=== PATIENT | female | born 1995 | race Caucasian/White ===

== ENCOUNTER 2025-02-12 07:34 | Inpatient (IN) ==
[2025-02-12] MEDS ORDERED: LIDOCAINE 1% LOCAL 20 ML VIAL INFIL PRN (07:48)
[2025-02-12 08:23] LABS: Hematocrit (blood only) 36.0 % (37.0-47.0); Hemoglobin 12.0 g/dl (12.0-16.0); Mean Corpuscular Hemoglobin 26.2 pg (25.0-34.0); Mean Corpuscular Volume 78.6 fL (80.0-100.0); Platelet Count 260 K/uL (130-400); RDW Standard Deviation 39.9 fL (36.4-46.3); Red Blood Count 4.58 M/uL (4.20-5.40); White Blood Count 12.36 K/ul (4.8-10.8)
[2025-02-12] MEDS: PENICILLIN GK 6 MU in DEXTROSE 5% 250 ML IV STA (08:31)
[2025-02-12] MEDS: LACTATED RINGER'S 1,000 ML IV PRN (08:32)
[2025-02-12] MEDS: OXYTOCIN 30 UNITS/NSS 30 UNITS/500 ML BAG IV PRN ×2 (09:28→22:51)
--- NOTE | 2025-02-12 10:31 | Labor Progress Brief Note ---
Date of Service February 12, 2025 Subjective Patient tolerating contractions Assessment & Plan Admission and Anticipated Discharge Date Admission Date: February 12, 2025 Physical Exam Genitourinary: Cervix 50/-2 AROM clear fluid FHT Cat 1 [place] poorly traced Pit @ 3 Results & Data Vital Signs (Past 12 Hours) Vital Signs Temp Pulse Resp BP 02/12/25 10:09 70 106/54 L 02/12/25 08:49 98.1 F 107 H 16 138/88 02/12/25 07:55 107 H 138/88 Coding Level of Care Code None
[2025-02-12 10:49] LABS: Alanine Aminotransferase 9.0 U/L (7-52); Albumin Globulin Ratio 1.1 (0.9-2); Albumin Level 3.4 gm/dl (3.4-5.0); Alkaline Phosphatase 130.0 U/L (34-104); Anion Gap 10.0 (3-11); Bilirubin,Total 0.3 mg/dl (0.2-1.0); Blood Urea Nitrogen 12.0 mg/dl (6-23); Calcium 9.4 mg/dl (8.6-10.3); Carbon Dioxide 20.0 mmol/L (21-32); Chloride 106.0 mmol/L (98-107); Creatinine Clr Calc Pharmacy 190.0 ml/min; Globulin 3.2 gm/dl (2.5-4.0); Glucose 151.0 mg/dl (70-99(Fasting)); Potassium 3.7 mmol/L (3.5-5.1); Sodium 136.0 mmol/L (136-145); Total Protein 6.6 gm/dl (6.0-8.3)
[2025-02-12 12:27] LABS: Protein Creatinine Ratio Urine 0.1 (0-0.2); Total Protein Urine Random 17.9 mg/dl (0-11.9)
[2025-02-12] MEDS: PENICILLIN GK 3 MU in DEXTROSE 5% 100 ML IV PRN (12:43)
[2025-02-12] MEDS ORDERED: LIDOCAINE 2%/EPINEPHRINE 1:200,000 20 ML PF EPI STA (17:27)
[2025-02-12] MEDS ORDERED: LIDOCAINE 2% MPF LOCAL 5 ML VIAL EPI PRN (17:27)
[2025-02-12] MEDS ORDERED: NALBUPHINE HCL INJ 10 MG/ML AMP IV PRN (17:27)
[2025-02-12] MEDS ORDERED: SODIUM CHLORIDE 0.9% PF INJ 10 ML VIAL EPI PRN (17:27)
[2025-02-12] MEDS ORDERED: NALOXONE HCL 0.4 MG/1 ML VIAL/CARP IV PRN (17:27)
[2025-02-12] MEDS ORDERED: SODIUM CHLORIDE 0.9% PF INJ 10 ML VIAL EPI STA (17:27)
[2025-02-12] MEDS ORDERED: diphenhydrAMINE 50 MG/ML VIAL IV PRN (17:27)
[2025-02-12] MEDS ORDERED: BUPIVACAINE 0.25% PF 30 ML VIAL EPI STA (17:27)
[2025-02-12] MEDS ORDERED: ROPIVACAINE 0.5% PF 5 MG/ML 20 ML VIAL EPI PRN (17:27)
[2025-02-12] MEDS ORDERED: NALOXONE HCL 1 MG in SODIUM CHLORIDE 0.9% 1,000 ML IV PRN (17:27)
--- NOTE | 2025-02-12 17:29 | Anesthesiology Consultation ---
Date of Service February 12, 2025 Assessment & Plan Chart Review Chart Review: Patient NOT seen in Pre Admission Testing and Acceptable Risk for Labor Epidural Consults Requested none ASA ASA3 Proposed Anesthesia Anesthesia Type: Labor Epidural Risk / Benefits Reviewed With: PT / POA / Parent / Guardian, Accepts Plan and Informed Consent Obtained History Height/Weight Height: 5 ft 10 in Weight: 143.789 kg Allergies Allergy/AdvReac Type Severity Reaction Status Date / Time ketorolac [From Toradol] AdvReac Intermediate Hot flash, Verified 02/11/25 08:52 headache Onions Allergy Severe Anaphylaxis Uncoded 02/11/25 08:52 Medications Home Medications Medication Instructions Recorded Confirmed Last Taken fluoxetine 20 mg capsule 20 mg PO DAILY 06/10/24 02/12/25 02/12/25 Naltrexone Tablets 2.5 mg PO DAILY 08/22/24 02/12/25 02/12/25 vit no.95-ferrous 1 tab PO DAILY 08/22/24 02/12/25 02/12/25 fumarate 28 mg-folic acid 800 mcg tablet () pyridoxine (vitamin B6) 100 mg 100 mg PO BID 08/22/24 02/11/25 02/11/25 tablet (Vitamin B-6) levothyroxine 100 mcg tablet 200 mcg PO DAILY 11/26/24 02/12/25 02/12/25 ferrous sulfate 325 mg (65 mg 325 mg PO Q OTHER DAY 02/11/25 02/12/25 1 Day Ago iron) tablet ~02/11/25 Active Medications Generic Name Dose Route Start Last Admin Trade Name Freq PRN Reason Stop Dose Admin Penicillin G Potassium 3 mu/ 106 mls @ 100 mls/hr 02/12/25 10:49 02/12/25 17:25 Dextrose IV 02/22/25 10:48 100 mls/hr Q4H PRN Administration GBS(+) Until Delivery Lactated Ringer's 1,000 mls @ 125 mls/hr 02/12/25 07:48 02/12/25 16:17 Lr IV 02/14/25 07:47 125 mls/hr .Q8H PRN Administration L&D Protocol Protocol Oxytocin 30 units in 500 mls @ 20 mls/hr 02/12/25 07:49 02/12/25 16:10 Pitocin 30 Units/Nss IV 02/14/25 07:48 1.2 units/hr .Q24H PRN 20 mls/hr Labor Induction/Augmentation Titration Protocol 1.2 UNITS/HR NPO Date Last Intake of Fluids: 02/12/25 Time Last Intake of Fluids: 17:00 Date Last Intake of Solids: 02/12/25 Time Last Intake of Solids: 07:00 Past Medical History Medical History Needle phobia Depression Weight disorder Vitamin D deficiency Prediabetes Plantar warts Infected incision (09/11/23) Impaired glucose tolerance (07/14/23) 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) Epistaxis (02/16/23) Anemia Anal fissure (03/21/24) Depression History of adverse childhood experiences Excessive sleepiness History of migraine History of anemia History of prediabetes Lumbar disc herniation History of stomach ulcers NSAID induced History of suicide attempt unknown Age 18 Plantar fasciitis Exercise / Class Metabolic Activity 1 > 8 Run/Swim/Ski/Tennis Past Family History Family History Father Schizophrenia Sister Schizophrenia Mother Bipolar disorder Myocardial infarction Grandmother (Maternal) Myocardial infarction Hypertension Lung cancer Grandfather (Maternal) Myocardial infarction Alcoholism Breast cancer Ovarian cancer Grandmother (Paternal) Alcoholism Grandfather (Paternal) Alcoholism Denies family history of Colorectal cancer Past Surgical History Surgical History History of ankle surgery due to dog bite Status post epidural steroid injection Past Anesthesia History No Hx of Anesthesia Complications and No Family Hx of Anesthesia Complications History of PONV No Hx of PONV and No Hx of Motion Sickness Social History Smoking Status: Never smoker Do You Dip or Chew Tobacco: No Hx Alcohol Use: No Hx Substance Use: No Review of Systems ROS Unobtainable: All systems reviewed & are unremarkable except as noted in HPI & below Physical Exam Vital Signs Last Vital Signs Temp 36.7 C 02/12/25 16:46 Pulse 93 H 02/12/25 15:17 Resp 18 02/12/25 16:46 BP 133/72 02/12/25 15:17 ENMT Mouth: no TMJ abnormality Thyromental Distance: > or= 3.5 Finger Breadths Mallampati Class: II Neck normal visual inspection and trachea midline; neck extension not limited Respiratory normal respiratory effort Auscultation: lungs clear to auscultation bilaterally Cardiovascular Rate/Rhythm: regular rate and regular rhythm Heart Sounds: no murmur Musculoskeletal Spine: normal cervical ROM Extremities: full ROM of extremities Neurologic moves all extremities Psychiatric Orientation: alert and oriented x 3 Testing Laboratory Results 02/12/25 08:05 02/12/25 08:14 Blood Type O Positive 02/12/25 08:12 Antibody Screen NEGATIVE 02/12/25 08:12
[2025-02-12] MEDS ORDERED: ONDANSETRON INJ 2 MG/ML 2 ML VIAL IV PRN (17:32)
[2025-02-12] MEDS: fentANYL 2 MCG/ML BUPIVacaine 0.125%-NSS 100ML BAG EPI PRN (17:45)
[2025-02-12] MEDS: BUPIVACAINE 0.25% PF 30 ML VIAL EPI PRN (18:04)
[2025-02-12] MEDS: LIDOCAINE 2%/EPINEPHRINE 1:200,000 20 ML PF ONE (18:05)
--- NOTE | 2025-02-12 18:42 | Labor Progress Brief Note ---
Date of Service February 12, 2025 Subjective Recent events: Patient poorly tolerant of ctx, removing toco monitor despite being advised of its utility in the induction process. Counseled about option to use external vs internal monitoring of contractions but that monitoring itself was required for safety during pitocin use. Patient was very painful and stating that she could not tolerate the monitor externally nor tolerate placement of an internal monitor d/t pain. Counseled regarding pain management. Addressed her fears w/r/t epidural. She did undergo epidural, and got relief, but unfortunately the first catheter pulled out with patient movement and tape sticking to the sheets. Replacement completed, and patient did achieve comfort. She was thereafter accepting of external toco monitor. Cervical check at that point / Pit @ 20 Plan: Continue pitocin, reassess at interval. Assessment & Plan Admission and Anticipated Discharge Date Admission Date: February 12, 2025 Results & Data Vital Signs (Past 12 Hours) Vital Signs Temp Pulse Resp BP Pulse Ox 02/12/25 18:35 98 H 98 02/12/25 18:33 101 H 116/58 L 02/12/25 18:30 99 02/12/25 18:30 106 H 02/12/25 18:30 115 H 113/58 L 02/12/25 18:27 106 H 116/59 L 02/12/25 18:25 101 H 98 02/12/25 18:24 98 H 119/60 02/12/25 18:21 100 H 117/58 L 02/12/25 18:20 105 H 97 02/12/25 18:18 103 H 118/54 L 02/12/25 18:15 98 02/12/25 18:15 114 H 02/12/25 18:15 107 H 117/61 02/12/25 18:12 115/55 L 02/12/25 18:10 106 H 98 02/12/25 18:09 94 02/12/25 18:09 113 H 02/12/25 18:09 114 H 117/56 L 02/12/25 18:06 113 H 120/57 L 02/12/25 18:05 115 H 97 02/12/25 18:03 125 H 117/58 L 02/12/25 18:00 98 02/12/25 18:00 127 H 02/12/25 18:00 142 H 123/62 02/12/25 17:57 133 H 126/59 L 02/12/25 17:55 117 H 98 02/12/25 17:54 114 H 141/63 H 02/12/25 17:51 106 H 147/67 H 02/12/25 17:50 108 H 98 02/12/25 17:48 111 H 163/74 H 02/12/25 17:45 108 H 167/100 H 98 02/12/25 17:42 116 H 168/80 H 02/12/25 17:40 116 H 99 02/12/25 16:46 18 02/12/25 16:46 98.1 F 18 02/12/25 15:17 93 H 133/72 02/12/25 15:16 87 169/81 H 02/12/25 14:30 18 02/12/25 14:30 97.7 F 18 02/12/25 12:23 81 130/71 02/12/25 12:16 92 H 89/51 L 02/12/25 11:53 18 02/12/25 11:53 97.9 F 18 02/12/25 11:10 85 129/76 02/12/25 10:55 79 128/77 02/12/25 10:40 86 134/61 02/12/25 10:36 75 139/81 02/12/25 10:09 70 106/54 L 02/12/25 08:49 98.1 F 107 H 16 138/88 02/12/25 07:55 107 H 138/88 Coding Level of Care Code None
[2025-02-12] MEDS: TRANEXAMIC ACID / 0.7% NACL 1,000 MG/100 ML BAG IV STA (22:40)
--- NOTE | 2025-02-12 23:13 | Delivery Summary ---
Vaginal Delivery Summary Date of Service February 12, 2025 Vaginal Delivery Summary DIAGNOSES: 1. Obrien intrauterine at 40w3d gestation. 2. Induction of Labor. 3. Group B Streptococcus Pos. 4. hemorrhage PROCEDURE: Spontaneous vaginal delivery. SURGEON: Manasa Ovalle MD. SOLUTION ANALYST: None. QUANTITATIVE BLOOD LOSS: 647 mL. COMPLICATIONS: None. PLACENTA: Spontaneous and intact with a 3-vessel cord. DISPOSITION: Stable to labor and delivery. DESCRIPTION: The patient pushed well and brought the head to in DOA position. The 's head was allowed to deliver with contraction force and no further active pushing, with the perineum protected during this time. There was no nuchal cord. The left shoulder was anterior. The shoulders and body delivered without any difficulty, and the infant was placed on the maternal abdomen. It was vigorous and moving all extremities, and making respiratory efforts. The cord was doubly clamped by the MD and then cut by the FOB. The placenta delivered spontaneously and was noted to be intact and with a 3VC. The cervix, vagina and perineum were examined and were found to be without defect requiring repair. Lochia was brisk immediately after delivery. Cytotec was given, bimanual massage removed clots from the uterus, lochia continued to be brisk and TXA was given, again bimanual massage was performed, and again lochia resumed at a brisk trickle. Jayleen device was placed without difficulty and the first ~24" of tubing filled with blood, but then further progress stopped and there was no further vaginal loss of blood. [facility] Vaginal Delivery Charge Vaginal Delivery Codes: 22860 global code for the antepartum, delivery, and post-
[2025-02-12] MEDS ORDERED: HYDROCORTISONE ACETATE 25 MG SUPP PR PRN (23:24)
[2025-02-12] MEDS ORDERED: OXYTOCIN 30 UNITS/NSS 30 UNITS/500 ML BAG IV PRN (23:24)
[2025-02-12] MEDS: SODIUM CHLORIDE 0.9% PF INJ 10 ML VIAL ONE (23:26)
[2025-02-12] MEDS: BUPIVACAINE 0.25% PF 30 ML VIAL ONE (23:26)
[2025-02-12] MEDS: fentANYL 2 MCG/ML BUPIVacaine 0.125%-NSS 100ML BAG ONE (23:26)
--- NOTE | 2025-02-13 01:40 | Anesthesia Procedure Note ---
Date of Service February 13, 2025 Anesthesia Post Epidural Note Vital Signs Vital Signs: Temp Pulse Resp BP Pulse Ox 37.0 C 111 H 18 119/60 98 02/12/25 21:20 02/13/25 01:33 02/12/25 21:20 02/13/25 01:33 02/12/25 22:25 Notes Mental Status: alert / awake / arousable and participated in evaluation Nausea / Vomiting: adequately controlled Pain: adequately controlled Airway Patency, RR, SpO2: stable & adequate BP & HR: stable & adequate Hydration State: stable & adequate Neuraxial Anesthesia: was administered and sensory block is resolving Anesthetic Complications: no major complications apparent Epidural: Removed without complications and With tip intact
[2025-02-13] MEDS: ONDANSETRON INJ 2 MG/ML 2 ML VIAL ONE (05:38)
[2025-02-13] MEDS: TRANEXAMIC ACID / 0.7% NACL 1000MG/100ML BAG IV ONE (05:38)
[2025-02-13] MEDS: DIPHTHER/TETAN/PERTUS Vaccine (Tdap, Adol/Adult) 0.5mL IM ONE (05:38)
[2025-02-13] MEDS: ACETAMINOPHEN 325 MG TAB PO PRN (06:51)
[2025-02-13] MEDS: BENZOCAINE 20% SPRY 85 APPLN/85 GM CAN EXT PRN (06:51)
[2025-02-13] MEDS: LEVOTHYROXINE SODIUM 200 MCG TABLET PO SCH (06:51)
[2025-02-13 06:56] LABS: Hematocrit (blood only) 26.9 % (37.0-47.0); Hemoglobin 8.9 g/dl (12.0-16.0); Mean Corpuscular Hemoglobin 26.4 pg (25.0-34.0); Mean Corpuscular Volume 79.8 fL (80.0-100.0); Platelet Count 212 K/uL (130-400); RDW Standard Deviation 41.1 fL (36.4-46.3); Red Blood Count 3.37 M/uL (4.20-5.40); White Blood Count 14.99 K/ul (4.8-10.8)
--- NOTE | 2025-02-13 07:32 | Labor Progress Brief Note ---
Date of Service February 13, 2025 Subjective Resting on R side. [place] for exam. Assessment & Plan Admission and Anticipated Discharge Date Admission Date: February 12, 2025 Physical Exam Genitourinary: Jayleen and cedillo removed without incident. Results & Data Vital Signs (Past 12 Hours) Vital Signs Temp Pulse Resp BP Pulse Ox 02/13/25 03:21 113 H 136/84 02/13/25 02:18 109 H 125/64 02/13/25 02:03 108 H 125/61 02/13/25 01:48 110 H 116/57 L 02/13/25 01:33 111 H 119/60 02/13/25 01:18 111 H 125/66 02/13/25 01:03 123 H 126/58 L 02/13/25 00:48 113 H 112/55 L 02/13/25 00:33 112 H 112/57 L 02/13/25 00:18 109 H 107/59 L 02/13/25 00:03 113 H 107/58 L 02/12/25 23:48 116 H 134/68 02/12/25 23:33 123 H 129/67 02/12/25 23:18 113 H 134/66 02/12/25 23:03 115 H 142/80 H 02/12/25 22:48 118 H 141/75 H 02/12/25 22:33 112 H 155/91 H 02/12/25 22:25 124 H 98 02/12/25 22:20 124 H 100 02/12/25 22:19 118 H 143/98 H 02/12/25 22:15 126 H 99 02/12/25 22:10 117 H 99 02/12/25 22:05 124 H 99 02/12/25 22:04 120 H 137/74 02/12/25 22:00 127 H 98 02/12/25 21:55 135 H 98 02/12/25 21:50 126 H 99 02/12/25 21:48 131 H 141/80 H 02/12/25 21:45 137 H 98 02/12/25 21:40 132 H 99 02/12/25 21:35 142 H 99 02/12/25 21:33 133 H 145/83 H 02/12/25 21:30 134 H 99 02/12/25 21:25 131 H 99 02/12/25 21:20 98.6 F 121 H 18 97 02/12/25 21:19 111 H 94 02/12/25 21:18 105 H 119/55 L 02/12/25 21:15 100 H 96 02/12/25 21:10 105 H 94 02/12/25 21:07 98 H 94 02/12/25 21:05 96 H 95 02/12/25 21:03 93 H 128/63 02/12/25 21:00 96 H 97 02/12/25 20:55 93 H 98 02/12/25 20:50 93 H 98 02/12/25 20:48 96 H 131/63 02/12/25 20:45 92 H 99 02/12/25 20:40 105 H 99 02/12/25 20:35 98 H 100 02/12/25 20:33 82 128/59 L 02/12/25 20:30 82 100 02/12/25 20:25 88 100 02/12/25 20:22 152/107 H 02/12/25 20:21 91 H 88 L 02/12/25 20:20 93 H 98 02/12/25 20:19 81 165/83 H 02/12/25 20:15 82 100 02/12/25 20:10 141 H 100 02/12/25 20:05 102 H 100 02/12/25 20:03 127 H 132/70 02/12/25 20:02 103 H 93 02/12/25 20:00 95 H 100 02/12/25 19:55 104 H 100 02/12/25 19:50 102 H 99 02/12/25 19:48 102 H 122/65 02/12/25 19:45 112 H 98 02/12/25 19:40 94 H 97 02/12/25 19:35 96 H 98 02/12/25 19:34 92 H 126/63 Coding Level of Care Code None
[2025-02-13] MEDS: PRENATAL VITAMIN 1 TAB PO SCH (09:12)
[2025-02-13] MEDS: NALTREXONE PO SCH (09:12)
[2025-02-13] MEDS: DOCUSATE SODIUM 100 MG CAP PO SCH (09:12)
[2025-02-13] MEDS: IBUPROFEN 600 MG TAB PO PRN (09:15)
[2025-02-13] MEDS: CALCIUM CARBONATE 500 MG CHEWABLE TAB PO PRN (23:43)
--- NOTE | 2025-02-14 05:46 | Obstetrical Progress Note ---
Date of Service February 14, 2025 Assessment & Plan (1) Encounter for assessment: Plan Plan d/c home. Instructions given. f/u in 6 weeks for pp visit. Day #:: 1 Subjective Ambulation: ambulating normally Voiding: no voiding problems Passing Gas:: Yes Diet Tolerance:: regular diet Lochia:: Small Feeding Type:: breast feeding Feeling very sore, but otherwise well. Physical Exam Constitutional WD/WN, vitals as above Cardiovascular Extremities: + edema (tr); no calf tenderness Gastrointestinal (Abdomen) obese, soft, nt/nd ff/nt at u Psychiatric A+Ox3, euthymic affect Results & Data Vital Signs (Past 12 Hours) Vital Signs Temp Pulse Resp BP Pulse Ox O2 Del Method 02/14/25 00:30 36.5 C 86 17 127/81 96 Room Air 02/13/25 19:30 36.8 C 99 H 16 135/83 97 Room Air
[2025-02-14 07:19] LABS: Hematocrit (blood only) 24.4 % (37.0-47.0); Hemoglobin 7.9 g/dl (12.0-16.0)
[2025-02-14 08:51] VITALS: BP 133/89; PULSE 91; RESP 16; TEMP 98.2; O2SAT 99
== END 2025-02-14 14:32 | disposition home or self-care (01) | DRG 768 ==
LOC: 4S1 07:34 → 4E2 02-13 07:58